=== PATIENT | male | born 1970 | race African-American/Black ===

== ENCOUNTER 2019-04-18 18:52 | Inpatient (IN) | payer MEDICAID ==
[~2019-04-18] VITALS: Ht 182.9 cm; Wt 172.4 kg
[2019-04-19] MEDS ORDERED: HYDROCODONE/ACETAMINOPHEN 5/325MG TABLET PO STA (01:45)
[2019-04-19 02:22] LABS: BASOPHILS % 0.7 % (0.0-2.0); EOSINOPHILS % 0.8 % (0.0-5.0); HEMATOCRIT. 38.7 % (42.0-52.0); HEMOGLOBIN. 12.6 g/dL (14.0-18.0); LYMPHOCYTES % 24.8 % (20.0-50.0); MEAN CORPUSCULAR HEMOGLOBIN 29.1 pg (28.0-32.0); MEAN CORPUSCULAR VOLUME 89.4 fL (80.0-94.0); MEAN PLATELET VOLUME 9.5 fl (7.4-10.4); MONOCYTES % 5.1 % (2.0-8.0); NEUTROPHILS % 68.6 % (40.0-76.0); PLATELET 230 x1000/uL (130-400); RED BLOOD CELL COUNT 4.33 mill/uL (4.7-6.1); RED CELL DISTRIBUTION WIDTH 14.5 % (11.6-14.6)
[2019-04-19 02:25] LABS: CHLORIDE 108 mEq/L (98-107)
[2019-04-19 02:28] LABS: INR 1.1; PARTIAL THROMBOPLASTIN TIME 24.7 sec (23.4-31.0); PROTHROMBIN TIME 11.1 sec (9.6-11.0)
[2019-04-19] MEDS ORDERED: FUROSEMIDE 40MG/4ML VIAL IVP ONE (04:00)
[2019-04-19] MEDS ORDERED: MORPHINE SULFATE 4 MG/ML CPJ (NOT FOR IM USE) IV ONE (04:30)
[2019-04-19] MEDS ORDERED: ZOLPIDEM TARTRATE 5MG TABLET PO PRN (07:15)
[2019-04-19] MEDS ORDERED: CLONIDINE 0.1MG TABLET PO PRN (07:15)
[2019-04-19] MEDS ORDERED: DOCUSATE SODIUM 100MG CAPSULE PO PRN (07:15)
[2019-04-19] MEDS ORDERED: ACETAMINOPHEN 325MG TABLET PO PRN (07:15)
[2019-04-19] MEDS ORDERED: NITROGLYCERIN 0.4MG TABLET SL SL PRN (07:15)
[2019-04-19] MEDS ORDERED: LORAZEPAM 0.5MG TABLET PO PRN (07:15)
[2019-04-19] MEDS ORDERED: ENOXAPARIN 40MG/0.4ML SYR SUBCUT SCH (07:15)
[2019-04-19] MEDS ORDERED: GUAIFENESIN 200MG/10ML SUGAR FREE UDC PO PRN (07:15)
[2019-04-19] MEDS ORDERED: IPRATROPIUM/ALBUTEROL 0.5-3(2.5)MG/3ML NEB NEB PRN (07:15)
[2019-04-19] MEDS ORDERED: MAGNESIUM/ALUMINUM HYDROXIDE/SIMETHICONE 30ML UDC PO PRN (07:15)
[2019-04-19] MEDS ORDERED: ONDANSETRON HCL 4MG/2ML INJ IV PRN (07:15)
[2019-04-19 08:01] LABS: VITAMIN B12 SERUM 573 pg/mL (211-911)
[2019-04-19 08:06] LABS: FOLIC ACID (FOLATE) SERUM > 20.00 ng/mL (>5.38)
[2019-04-19 08:40] VITALS: BP 124/56
[2019-04-19 09:09] VITALS: BP 124/54
[2019-04-19 09:13] VITALS: BP 124/56
[2019-04-19] MEDS: FUROSEMIDE 40MG/4ML VIAL IVP SCH ×2 (10:03→19:27)
[2019-04-19] MEDS: ENOXAPARIN 40MG/0.4ML SYR SUBCUT SCH ×2 (10:17→21:19)
[2019-04-19] MEDS: ZINC SULFATE 220 MG ( 50 ) CAPSULE PO SCH (10:18)
[2019-04-19] MEDS: ASCORBIC ACID 500 MG TABLET PO SCH ×2 (10:18→21:19)
[2019-04-19] MEDS: FAMOTIDINE 20MG TABLET PO SCH ×2 (10:18→21:19)
[2019-04-19] MEDS: KETOROLAC 15MG/ML VIAL IV PRN ×2 (10:19→21:22)
[2019-04-19] MEDS ORDERED: DEXTROSE 50% WATER 50ML SYRINGE IV PRN (11:45)
[2019-04-19 12:00] VITALS: BP 133/66
[2019-04-19 12:07] LABS: *BARBITURATES SCREEN URINE NEGATIVE (NEGATIVE)
[2019-04-19 12:08] LABS: *AMPHETAMINES SCREEN URINE NEGATIVE (NEGATIVE); *BENZODIAZEPINES SCREEN URINE NEGATIVE (NEGATIVE); *COCAINE SCREEN URINE NEGATIVE (NEGATIVE); CANNABINOID URINE SCREEN NEGATIVE (NEGATIVE); METHADONE URINE SCREEN NEGATIVE (NEGATIVE); OPIATES URINE SCREEN PRESUMTIVE POSITIVE (NEGATIVE); PHENCYCLIDINE URINE SCREEN NEGATIVE (NEGATIVE)
[2019-04-19] MEDS: BLOOD SUGAR DIAGNOSTIC STRIP TEST SCH ×3 (12:20→21:00)
[2019-04-19] MEDS: INSULIN LISPRO 100 UNITS/ML SUBCUT SCH ×3 (12:50→21:21)
[2019-04-19] MEDS ORDERED: IOHEXOL-300 100 ML BOTTLE ONE (13:30)
[2019-04-19] MEDS: LISINOPRIL 5MG TABLET PO SCH (13:41)
[2019-04-19] MEDS: GABAPENTIN 300MG CAPSULE PO SCH ×2 (13:42→21:19)
[2019-04-19] MEDS: SPIRONOLACTONE 25MG TABLET PO SCH ×2 (13:42→21:19)
[2019-04-19] MEDS ORDERED: GABAPENTIN 400MG CAPSULE PO SCH (14:00)
[2019-04-19 16:00] VITALS: BP 106/61
[2019-04-19] MEDS ORDERED: ATOR10TA MT (19:47)
[2019-04-19] MEDS ORDERED: GABA-531 MT (19:47)
[2019-04-19] MEDS ORDERED: LISI-186 MT (19:47)
[2019-04-19] MEDS ORDERED: METF-416 MT (19:47)
[2019-04-19 20:42] VITALS: BP 115/55
[2019-04-19] MEDS ORDERED: ATORVASTATIN CALCIUM 10MG TABLET PO SCH ×2 (21:00)
[2019-04-20] VITALS: BP 112/53
[2019-04-20 04:00] VITALS: BP 118/64
[2019-04-20] MEDS: BLOOD SUGAR DIAGNOSTIC STRIP TEST SCH ×2 (06:25→12:35)
[2019-04-20] MEDS: FUROSEMIDE 40MG/4ML VIAL IVP SCH (06:42)
[2019-04-20] MEDS: GABAPENTIN 300MG CAPSULE PO SCH ×2 (06:42→15:26)
[2019-04-20] MEDS: INSULIN LISPRO 100 UNITS/ML SUBCUT SCH ×2 (07:50→12:36)
[2019-04-20 08:00] VITALS: BP 115/63
[2019-04-20] MEDS: ENOXAPARIN 40MG/0.4ML SYR SUBCUT SCH (10:07)
[2019-04-20] MEDS: LISINOPRIL 5MG TABLET PO SCH (10:08)
[2019-04-20] MEDS: SPIRONOLACTONE 25MG TABLET PO SCH (10:09)
[2019-04-20] MEDS: FAMOTIDINE 20MG TABLET PO SCH (10:09)
[2019-04-20] MEDS: ASCORBIC ACID 500 MG TABLET PO SCH (10:09)
[2019-04-20] MEDS: ZINC SULFATE 220 MG ( 50 ) CAPSULE PO SCH (10:10)
[2019-04-20] MEDS: KETOROLAC 15MG/ML VIAL IV PRN (12:38)
[2019-04-20 14:31] VITALS: BP 117/66
== END 2019-04-20 15:50 | disposition home or self-care (01) | DRG 351 ==
LOC: ER 18:52 → 6WST 04-19 05:05 → ENRESERV 04-19 07:36
PROVIDERS: ADMIT Internal Medicine; ATTEND Internal Medicine
DX: M25.074 Hemarthrosis, right foot (principal); I11.0 Hypertensive heart disease with heart failure; I82.432 Acute embolism and thrombosis of left popliteal vein; D62 Acute posthemorrhagic anemia; E11.65 Type 2 diabetes mellitus with hyperglycemia; I50.9 Heart failure, unspecified; E44.1 Mild protein-calorie malnutrition; E66.01 Morbid (severe) obesity due to excess calories; I87.8 Other specified disorders of veins; L97.919 Non-pressure chronic ulcer of unspecified part of right lower leg with unspecified severity; I83.028 Varicose veins of left lower extremity with ulcer other part of lower leg; L97.829 Non-pressure chronic ulcer of other part of left lower leg with unspecified severity; I87.002 Postthrombotic syndrome without complications of left lower extremity; J45.909 Unspecified asthma, uncomplicated; Z79.01 Long term (current) use of anticoagulants; Z68.43 Body mass index [BMI] 50.0-59.9, adult; Z79.899 Other long term (current) drug therapy; Z79.84 Long term (current) use of oral hypoglycemic drugs; Z90.89 Acquired absence of other organs; Z86.718 Personal history of other venous thrombosis and embolism
CPT/HCPCS: 36415; 71045; 71250; 80061; 80305; 82607; 82746; 82962; 83036; 83880; 84484; 93005; 93970; 96374; 99285; J1650; J1815; J1885; J1940; J2270; Q9967

== ENCOUNTER 2019-05-03 12:56 | Emergency (ER) | payer MEDICAID ==
[~2019-05-03] VITALS: Ht 182.9 cm; Wt 169.0 kg
[~2019-05-03 12:56] MED LIST: ATOR10TA MT; GABA-531 MT; LISI-186 MT; METF-416 MT
[2019-05-03 17:03] LABS: CHLORIDE 108 mEq/L (98-107)
[2019-05-03] MEDS ORDERED: ACETAMINOPHEN WITH CODEINE 300/30MG TABLET PO ONE (17:15)
[2019-05-03 17:52] LABS: BASOPHILS % 1.1 % (0.0-2.0); EOSINOPHILS % 1.2 % (0.0-5.0); HEMATOCRIT. 32.9 % (42.0-52.0); LYMPHOCYTES % 20.9 % (20.0-50.0); MEAN CORPUSCULAR HEMOGLOBIN 28.9 pg (28.0-32.0); MEAN CORPUSCULAR VOLUME 86.8 fL (80.0-94.0); MEAN PLATELET VOLUME 9.5 fl (7.4-10.4); MONOCYTES % 4.2 % (2.0-8.0); NEUTROPHILS % 72.6 % (40.0-76.0); PLATELET 174 x1000/uL (130-400); RED BLOOD CELL COUNT 3.79 mill/uL (4.7-6.1); RED CELL DISTRIBUTION WIDTH 14.8 % (11.6-14.6)
[2019-05-03 22:04] VITALS: BP 138/74
== END 2019-05-03 23:58 | disposition home or self-care (01) ==
LOC: ER 12:56
DX: R07.89 Other chest pain (principal); E11.622 Type 2 diabetes mellitus with other skin ulcer; L97.819 Non-pressure chronic ulcer of other part of right lower leg with unspecified severity; I87.8 Other specified disorders of veins; R03.0 Elevated blood-pressure reading, without diagnosis of hypertension
CPT/HCPCS: 36415; 71045; 84484; 93005; 99284

== ENCOUNTER 2019-11-13 06:25 | Emergency (ER) | payer MEDICAID ==
[~2019-11-13] VITALS: Ht 182.9 cm; Wt 177.0 kg
[2019-11-13] MEDS ORDERED: FLUORESCEIN SODIUM 1MG/STRIP BOTHEYE ONE (08:15)
[2019-11-13] MEDS ORDERED: TETRACAINE 0.5% OPHTH DROPS 4ML BOTHEYE ONE (08:15)
[2019-11-13 09:25] LABS: CHLORIDE 105 mEq/L (98-107)
[2019-11-13 09:28] LABS: BASOPHILS % 0.6 % (0.0-2.0); EOSINOPHILS % 0.5 % (0.0-5.0); HEMATOCRIT. 38.9 % (42.0-52.0); HEMOGLOBIN. 12.9 g/dL (14.0-18.0); LYMPHOCYTES % 18.8 % (20.0-50.0); MEAN CORPUSCULAR HEMOGLOBIN 27.1 pg (28.0-32.0); MEAN CORPUSCULAR VOLUME 81.6 fL (80.0-94.0); MEAN PLATELET VOLUME 9.4 fl (7.4-10.4); MONOCYTES % 5.1 % (2.0-8.0); PLATELET 175 x1000/uL (130-400); RED BLOOD CELL COUNT 4.77 mill/uL (4.7-6.1); RED CELL DISTRIBUTION WIDTH 18.7 % (11.6-14.6)
[2019-11-13 11:17] VITALS: BP 160/72
== END 2019-11-13 11:17 | disposition home or self-care (01) ==
LOC: ER 06:25
DX: H53.8 Other visual disturbances (principal); I11.0 Hypertensive heart disease with heart failure; I50.9 Heart failure, unspecified; J45.909 Unspecified asthma, uncomplicated; E11.9 Type 2 diabetes mellitus without complications; Z79.899 Other long term (current) drug therapy
CPT/HCPCS: 36415; 80053; 82962; 85025; 99284

== ENCOUNTER 2020-12-09 00:28 | Emergency (ER) | payer MEDICAID ==
[~2020-12-09] VITALS: Ht 190.5 cm; Wt 127.0 kg
[~2020-12-09 00:28] MED LIST changes: -GABA-531 MT; +GABA-532 MT
[2020-12-09 00:31] VITALS: BP 123/57
[2020-12-09] MEDS ORDERED: TETRACAINE 0.5% OPHTH DROPS 4ML BOTHEYE ONE (01:15)
[2020-12-09] MEDS ORDERED: FLUORESCEIN SODIUM 1MG/STRIP BOTHEYE ONE (01:15)
== END 2020-12-09 02:31 | disposition home or self-care (01) ==
LOC: ER 00:28
DX: H53.8 Other visual disturbances (principal); E11.9 Type 2 diabetes mellitus without complications; J45.909 Unspecified asthma, uncomplicated
CPT/HCPCS: 82962; 99283

== ENCOUNTER 2023-08-02 10:28 | Emergency (ER) | payer MEDICAID ==
[~2023-08-02] VITALS: Ht 185.4 cm; Wt 147.0 kg
[~2023-08-02 10:28] MED LIST changes: +ACET325T52 PO; +ALBU90AE INH; -ATOR10TA MT; +ATOR40TA70 PO; +ATROV INH; +ATROV3 NS; +BUME2TAB7 PO; +CEFD300C3 MT; +DILT30TA3 PO; +EMPA10TA PO; +ERGO1250 PO; +FLUT1DIS3 IH; -GABA-532 MT; +GABA-532 PO; +INSU100V3 SQ; -LISI-186 MT; -METF-416 MT; +METO-396 PO; +MONT-39 PO; +PRIL20 PO; +SPIR25TA6 PO; +[UNRECOGNIZED DRUG - CODE] SQ
[2023-08-02] MEDS: IPRATROPIUM/ALBUTEROL 0.5-3(2.5)MG/3ML NEB HHN ONE (12:00)
[2023-08-02 12:11] LABS: BASOPHILS % 0.7 % (0.0-2.0); EOSINOPHILS % 0.7 % (0.0-5.0); HEMATOCRIT. 40.2 % (42.0-52.0); HEMOGLOBIN. 13.4 g/dL (14.0-18.0); LYMPHOCYTES % 16.9 % (20.0-50.0); MEAN CORPUSCULAR HEMOGLOBIN 30.5 pg (28.0-32.0); MEAN CORPUSCULAR HGB CONC 33.3 g/dL (31.0-37.0); MEAN CORPUSCULAR VOLUME 91.7 fL (80.0-94.0); MEAN PLATELET VOLUME 11.6 fl (7.4-10.4); MONOCYTES % 6.4 % (2.0-8.0); NEUTROPHILS % 75.3 % (40.0-76.0); PLATELET 151 x1000/uL (130-400); RED BLOOD CELL COUNT 4.38 mill/uL (4.7-6.1); RED CELL DISTRIBUTION WIDTH 15.5 % (11.6-14.6); WHITE BLOOD COUNT 8.2 x1000/uL (4.5-11.0)
[2023-08-02] MEDS: FUROSEMIDE 40MG/4ML VIAL IVP ONE (12:33)
[2023-08-02 12:41] LABS: ALANINE AMINOTRANSFERASE 175 IU/L (10-49); ALBUMIN 4.2 g/dL (3.2-4.8); ASPARTATE AMINOTRANSFERASE 190 IU/L (<34); BILIRUBIN TOTAL 2.7 mg/dL (0.1-1.0); CARBON DIOXIDE 26 mEq/L (21-32); CHLORIDE 101 mEq/L (98-107); CREATININE 0.9 mg/dL (0.6-1.3); GLUCOSE 161 mg/dL (70-105); PROTEIN TOTAL 7.3 g/dL (6.0-8.3); SODIUM 135 mEq/L (136-145); TROPONIN I HIGH SENSITIVITY 11 ng/L (3.0-53); UREA NITROGEN BLOOD 9 mg/dL (9-23)
[2023-08-02] MEDS: DEXAMETHASONE 4MG TABLET PO ONE (12:50)
[2023-08-02 14:47] VITALS: BP 121/34; TEMP 98.7
[2023-08-02 15:28] VITALS: PULSE 78; RESP 18; O2SAT 100
== END 2023-08-02 15:35 | disposition home or self-care (01) ==
LOC: ER 10:28
DX: R06.02 Shortness of breath (principal); J45.909 Unspecified asthma, uncomplicated; E11.9 Type 2 diabetes mellitus without complications; Z79.899 Other long term (current) drug therapy
CPT/HCPCS: 80053; 83880; 85025; 84484; 36415; 71045; 94640; 93005; 96374; 99285; J8540; Z7610 ×5

== ENCOUNTER 2023-10-12 21:21 | Emergency (ER) | payer MEDICAID ==
[~2023-10-12] VITALS: Ht 182.9 cm; Wt 177.0 kg
[~2023-10-12 21:21] MED LIST changes: -BUME2TAB7 PO; -CEFD300C3 MT; +FURO80TA87 MT; +METO2.5T2 MT
[2023-10-12 21:38] VITALS: O2SAT 98
[2023-10-12 23:24] LABS: BASOPHILS % 0.6 % (0.0-2.0); EOSINOPHILS % 0.2 % (0.0-5.0); HEMATOCRIT. 39.5 % (42.0-52.0); HEMOGLOBIN. 13.4 g/dL (14.0-18.0); LYMPHOCYTES % 11.7 % (20.0-50.0); MEAN CORPUSCULAR HEMOGLOBIN 31.5 pg (28.0-32.0); MEAN CORPUSCULAR HGB CONC 33.9 g/dL (31.0-37.0); MEAN CORPUSCULAR VOLUME 92.8 fL (80.0-94.0); MEAN PLATELET VOLUME 10.7 fl (7.4-10.4); NEUTROPHILS % 82.5 % (40.0-76.0); PLATELET 156 x1000/uL (130-400); RED BLOOD CELL COUNT 4.26 mill/uL (4.7-6.1); RED CELL DISTRIBUTION WIDTH 13.1 % (11.6-14.6); WHITE BLOOD COUNT 10.5 x1000/uL (4.5-11.0)
[2023-10-12 23:42] LABS: ALANINE AMINOTRANSFERASE 60 IU/L (10-49); ALBUMIN 4.7 g/dL (3.2-4.8); ASPARTATE AMINOTRANSFERASE 75 IU/L (<34); BILIRUBIN TOTAL 0.8 mg/dL (0.1-1.0); CALCIUM 9.2 mg/dL (8.7-10.4); CARBON DIOXIDE 25 mEq/L (21-32); CHLORIDE 101 mEq/L (98-107); CREATININE 1.4 mg/dL (0.6-1.3); GLUCOSE 288 mg/dL (70-105); POTASSIUM 4.4 mEq/L (3.5-5.1); PROTEIN TOTAL 7.9 g/dL (6.0-8.3); SODIUM 131 mEq/L (136-145); UREA NITROGEN BLOOD 31 mg/dL (9-23)
[2023-10-13 00:44] VITALS: TEMP 98.9
[2023-10-13] MEDS ORDERED: FUROSEMIDE 40MG TABLET PO ONE (00:45)
[2023-10-13] MEDS: FUROSEMIDE 40MG/4ML VIAL IVP NR (00:57)
[2023-10-13 01:49] LABS: TROPONIN I HIGH SENSITIVITY 14 ng/L (3.0-53)
[2023-10-13 04:36] LABS: TROPONIN I HIGH SENSITIVITY 14 ng/L (3.0-53)
[2023-10-13 05:51] VITALS: BP 139/62; PULSE 82; RESP 17
== END 2023-10-13 05:58 | disposition home or self-care (01) ==
LOC: ER 21:21
DX: J45.909 Unspecified asthma, uncomplicated (principal); I11.0 Hypertensive heart disease with heart failure; I50.9 Heart failure, unspecified; E11.9 Type 2 diabetes mellitus without complications; I82.409 Acute embolism and thrombosis of unspecified deep veins of unspecified lower extremity
CPT/HCPCS: 99285; 71045; 80053; 83880; 85025; 36415 ×2; 93005 ×2; 96374; 84484; J1940